=== PATIENT | female | born 1945 | race African-American/Black ===

== ENCOUNTER → 2016-10-24 | Outpatient (CLI) | payer MEDICARE, MEDICAID ==
[~2016-10-24] MED LIST: ALBU6.7H2 IH; ATOR10TA69 PO; CARV40CP PO; DEXL60CA3 PO; OLME20TA14 PO
== END | disposition home or self-care (01) ==
LOC: MAMMO 08:01
PROVIDERS: ATTEND Internal Medicine Critical Care Medicine
DX: Z12.31 Encounter for screening mammogram for malignant neoplasm of breast (principal)
CPT/HCPCS: G0202

== ENCOUNTER 2016-12-26 06:27 | Inpatient (IN) | payer MEDICARE, MEDICAID ==
[~2016-12-26] VITALS: Ht 162.6 cm; Wt 97.1 kg
[2016-12-26] MEDS ORDERED: SODIUM CHLORIDE 0.9% 1,000 ML IV ONE (10:16)
[2016-12-26] MEDS ORDERED: ONDANSETRON HCL 4MG/2ML VIAL IV STA (10:16)
[2016-12-26 10:53] LABS: BASOPHILS % 0.3 % (0.0-2.0); EOSINOPHILS % 1.5 % (0.0-5.0); HEMATOCRIT. 44.3 % (36.0-48.0); HEMOGLOBIN. 14.7 g/dL (12.0-16.0); LYMPHOCYTES % 9.8 % (20.0-50.0); MEAN CORPUSCULAR HEMOGLOBIN 27.7 pg (28.0-32.0); MEAN CORPUSCULAR VOLUME 83.8 fL (81.0-99.0); MEAN PLATELET VOLUME 9.4 fl (7.4-10.4); MONOCYTES % 2.8 % (2.0-8.0); NEUTROPHILS % 85.6 % (40.0-76.0); PLATELET 313 x1000/uL (130-400); RED BLOOD CELL COUNT 5.29 mill/uL (4.2-5.4); RED CELL DISTRIBUTION WIDTH 14.1 % (11.6-14.6)
[2016-12-26 11:05] LABS: INR 1.1; PARTIAL THROMBOPLASTIN TIME 25.2 sec (23.4-31.0); PROTHROMBIN TIME 11.5 sec (9.4-11.6)
[2016-12-26 11:08] LABS: CARBON DIOXIDE 29 mEq/L (21-32); CHLORIDE 105 mEq/L (98-107)
[2016-12-26] MEDS ORDERED: DICYCLOMINE HCL 10MG/ML 2ML AMP IM STA (13:29)
[2016-12-26] MEDS ORDERED: DICYCLOMINE HCL 10MG/ML 2ML AMP IM NR (14:10)
[2016-12-26] MEDS ORDERED: ONDANSETRON HCL 4MG/2ML VIAL IV PRN (20:30)
[2016-12-26] MEDS ORDERED: LOPERAMIDE HCL 2MG CAPSULE PO PRN (20:30)
[2016-12-26] MEDS ORDERED: ALBUTEROL 6.7GM HFA INHALER ORI PRN (20:30)
[2016-12-26] MEDS ORDERED: MORPHINE SULFATE 4 MG/ML CPJ (NOT FOR IM USE) IV PRN (21:30)
[2016-12-26] MEDS ORDERED: ALBUTEROL (0.083%) 2.5MG/3ML NEB HHN PRN (23:45)
[2016-12-27] VITALS (8 sets, daily range): BP systolic 112–146; BP diastolic 51–79
[2016-12-27] MEDS ORDERED: BISMUTH SUBSALICYLATE 262 MG/15 ML-120ML BOTTLE PO PRN (02:00)
[2016-12-27] MEDS ORDERED: DEXT 5%/0.45% NACL KCL 40MEQ/L 1,000 ML IV SCH (02:00)
[2016-12-27 07:07] LABS: CHLORIDE 107 mEq/L (98-107)
[2016-12-27 07:19] LABS: CARBON DIOXIDE 27 mEq/L (21-32); HDL CHOLESTEROL 49 mg/dL (40-59); LDL CHOLESTEROL 38 mg/dL (5-100)
[2016-12-27 07:45] LABS: BASOPHILS % 0.2 % (0.0-2.0); EOSINOPHILS % 8.1 % (0.0-5.0); HEMATOCRIT. 35.2 % (36.0-48.0); HEMOGLOBIN. 11.8 g/dL (12.0-16.0); LYMPHOCYTES % 32.6 % (20.0-50.0); MEAN CORPUSCULAR VOLUME 83.7 fL (81.0-99.0); MEAN PLATELET VOLUME 9.9 fl (7.4-10.4); MONOCYTES % 6.3 % (2.0-8.0); NEUTROPHILS % 52.8 % (40.0-76.0); PLATELET 238 x1000/uL (130-400); RED BLOOD CELL COUNT 4.21 mill/uL (4.2-5.4); RED CELL DISTRIBUTION WIDTH 13.8 % (11.6-14.6)
[2016-12-27] MEDS: PANTOPRAZOLE SODIUM 40 MG/VIAL IV SCH (08:39)
[2016-12-27] MEDS: LACTOBACILLUS GG CAPSULE PO SCH (08:40)
[2016-12-27] MEDS: CARVEDILOL 12.5MG TABLET PO SCH ×2 (08:41→21:38)
[2016-12-27] MEDS ORDERED: NON FORMULARY PATIENT HOME MED EA ORI SCH (09:00)
[2016-12-27] MEDS: POTASSIUM BICARB/CIT ACID 25 MEQ TABLET.EFF PO SCH ×2 (10:51→14:22)
[2016-12-27] MEDS: IPRATROPIUM BROMIDE (0.02%) 0.5MG/2.5ML NEB HHN SCH (19:58)
[2016-12-28] VITALS: BP 90/60
[2016-12-28] MEDS: IPRATROPIUM BROMIDE (0.02%) 0.5MG/2.5ML NEB HHN SCH ×3 (01:34→21:30)
[2016-12-28 04:00] VITALS: BP 139/68
[2016-12-28 06:52] LABS: CARBON DIOXIDE 29 mEq/L (21-32); CHLORIDE 108 mEq/L (98-107)
[2016-12-28 08:00] VITALS: BP 133/76
[2016-12-28 08:03] LABS: BASOPHILS % 0.3 % (0.0-2.0); EOSINOPHILS % 12.9 % (0.0-5.0); HEMATOCRIT. 34.4 % (36.0-48.0); HEMOGLOBIN. 11.8 g/dL (12.0-16.0); MEAN CORPUSCULAR HEMOGLOBIN 28.4 pg (28.0-32.0); MEAN CORPUSCULAR VOLUME 82.6 fL (81.0-99.0); MEAN PLATELET VOLUME 9.8 fl (7.4-10.4); MONOCYTES % 5.4 % (2.0-8.0); NEUTROPHILS % 50.4 % (40.0-76.0); PLATELET 246 x1000/uL (130-400); RED BLOOD CELL COUNT 4.16 mill/uL (4.2-5.4); RED CELL DISTRIBUTION WIDTH 13.9 % (11.6-14.6)
[2016-12-28] MEDS: PANTOPRAZOLE SODIUM 40 MG/VIAL IV SCH (09:35)
[2016-12-28] MEDS: POTASSIUM BICARB/CIT ACID 25 MEQ TABLET.EFF PO SCH ×2 (09:35→14:04)
[2016-12-28] MEDS: CARVEDILOL 12.5MG TABLET PO SCH ×2 (09:36→21:24)
[2016-12-28] MEDS: LACTOBACILLUS GG CAPSULE PO SCH (09:41)
[2016-12-28 12:00] VITALS: BP 129/65
[2016-12-28 16:00] VITALS: BP 131/73
[2016-12-28] MEDS ORDERED: POTASSIUM CHLORIDE 20MEQ TABLET SR PO SCH (19:15)
[2016-12-28 20:00] VITALS: BP 128/59
[2016-12-28] MEDS: METRONIDAZOLE 500MG TABLET PO SCH (22:49)
[2016-12-29] VITALS: BP 106/64
[2016-12-29] MEDS: IPRATROPIUM BROMIDE (0.02%) 0.5MG/2.5ML NEB HHN SCH ×2 (02:33→08:54)
[2016-12-29 04:00] VITALS: BP 136/73
[2016-12-29 06:03] LABS: CARBON DIOXIDE 31 mEq/L (21-32); CHLORIDE 106 mEq/L (98-107)
[2016-12-29] MEDS: METRONIDAZOLE 500MG TABLET PO SCH ×2 (06:53→13:47)
[2016-12-29 08:00] VITALS: BP 118/56
[2016-12-29] MEDS: CARVEDILOL 12.5MG TABLET PO SCH (08:31)
[2016-12-29] MEDS: LACTOBACILLUS GG CAPSULE PO SCH (08:34)
[2016-12-29] MEDS: POTASSIUM BICARB/CIT ACID 25 MEQ TABLET.EFF PO SCH ×2 (08:34→13:47)
[2016-12-29] MEDS ORDERED: FAMOTIDINE 20MG TABLET PO SCH (09:00)
[2016-12-29 12:00] VITALS: BP 131/67
[2016-12-29 16:00] VITALS: BP 143/74
[2016-12-29 17:00] VITALS: BP 143/74
[2016-12-29] MEDS ORDERED: ENOXAPARIN 30MG/0.3ML SYR SUBCUT SCH (21:00)
[2017-01-01 04:18] LABS: OVA & PARASITE EXAM Final report (.)
== END 2016-12-29 17:30 | disposition home or self-care (01) | DRG 372 ==
LOC: ER 10:14 → EDBEDREQ 12:59 → OBSVTOIN 20:37 → 6EST 20:37 → INTOOBSV 20:37 → ENRESERV 21:10
PROVIDERS: ADMIT Internal Medicine Critical Care Medicine; ATTEND Internal Medicine Critical Care Medicine
DX: A04.7 Enterocolitis due to Clostridium difficile (principal); I43 Cardiomyopathy in diseases classified elsewhere; I11.0 Hypertensive heart disease with heart failure; I50.9 Heart failure, unspecified; J44.9 Chronic obstructive pulmonary disease, unspecified; E11.9 Type 2 diabetes mellitus without complications; E78.5 Hyperlipidemia, unspecified; E87.6 Hypokalemia; Z87.442 Personal history of urinary calculi; Z87.891 Personal history of nicotine dependence; Z90.710 Acquired absence of both cervix and uterus; Z88.6 Allergy status to analgesic agent; Z90.49 Acquired absence of other specified parts of digestive tract; Z80.3 Family history of malignant neoplasm of breast
CPT/HCPCS: 36415; 71010; 80048; 80053; 80061; 83690; 83880; 84132; 85025; 85610; 85730; 87015; 87045; 87177; 87209; 87427; 87449; 87493; 89055; 93005; 94640; 94664; 96361; 96372; 96374; 99285; C1893; C9113; J0500; J2270; J2405; J7030; J7611

== ENCOUNTER 2017-07-26 06:07 | Inpatient (IN) | payer MEDICARE, MEDICAID ==
[~2017-07-26] VITALS: Ht 160 cm; Wt 99.5 kg
[~2017-07-26 06:07] MED LIST changes: -ALBU6.7H2 IH; +ALBU6.7H3 IH
[2017-07-26 07:35] LABS: BASOPHILS % 0.6 % (0.0-2.0); EOSINOPHILS % 5.3 % (0.0-5.0); HEMATOCRIT. 39.1 % (36.0-48.0); HEMOGLOBIN. 13.3 g/dL (12.0-16.0); LYMPHOCYTES % 25.4 % (20.0-50.0); MEAN CORPUSCULAR HEMOGLOBIN 29.1 pg (28.0-32.0); MEAN CORPUSCULAR VOLUME 85.4 fL (81.0-99.0); MEAN PLATELET VOLUME 8.7 fl (7.4-10.4); MONOCYTES % 5.7 % (2.0-8.0); PLATELET 282 x1000/uL (130-400); RED BLOOD CELL COUNT 4.57 mill/uL (4.2-5.4); RED CELL DISTRIBUTION WIDTH 13.8 % (11.6-14.6)
[2017-07-26 07:38] LABS: CHLORIDE 106 mEq/L (98-107)
[2017-07-26 08:01] LABS: PARTIAL THROMBOPLASTIN TIME 27.3 sec (23.4-31.0); PROTHROMBIN TIME 10.7 sec (9.4-11.6)
[2017-07-26] MEDS ORDERED: ALBU18HF2 IH (08:41)
[2017-07-26] MEDS ORDERED: MONT10TA24 PO (08:41)
[2017-07-26] MEDS ORDERED: UMEC1DIS IH (08:41)
[2017-07-26] MEDS ORDERED: SPIR50TA26 PO (08:41)
[2017-07-26] MEDS ORDERED: ASPI-1159 PO (08:41)
[2017-07-26] MEDS ORDERED: FENTANYL CITRATE/PF 50MCG/ML 2ML VIAL ONE (09:59)
[2017-07-26] MEDS ORDERED: DIPHENHYDRAMINE 50MG/ML VIAL ONE (10:00)
[2017-07-26] MEDS ORDERED: MIDAZOLAM HCL 2 MG/2 ML VIAL ONE (10:00)
[2017-07-26] MEDS ORDERED: PROPOFOL 200MG/20ML VIAL IV ONE (10:07)
[2017-07-26] MEDS ORDERED: LIDOCAINE HCL/PF 1% 10 MG/ML 5ML VIAL ONE ×2 (10:08→10:53)
[2017-07-26] MEDS ORDERED: GENTAMICIN SULF 40MG/ML 2ML VIAL ONE (10:21)
[2017-07-26] MEDS ORDERED: LIDOCAINE HCL/PF 1% 10 MG/ML 30ML VIAL ONE (10:21)
[2017-07-26] MEDS ORDERED: GENTAMICIN/NS IRRIGATION 500 ML IR ONE (10:22)
[2017-07-26] MEDS ORDERED: IOHEXOL-300 100 ML BOTTLE ONE (10:22)
[2017-07-26] MEDS ORDERED: CEFAZOLIN SODIUM 1000MG/VIAL ONE (10:24)
[2017-07-26] MEDS ORDERED: MORPHINE SULFATE 2 MG/ML CPJ (NOT FOR IM USE) IV PRN (13:45)
[2017-07-26] MEDS: HYDROCODONE/ACETAMINOPHEN 5/325MG TABLET PO PRN ×2 (14:28→20:35)
[2017-07-26 16:02] VITALS: BP 130/75
[2017-07-26 16:35] VITALS: BP 130/75
[2017-07-26] MEDS ORDERED: ALBUTEROL 6.7GM HFA INHALER INH SCH (17:00)
[2017-07-26 18:00] VITALS: BP 124/84
[2017-07-26 20:00] VITALS: BP 112/49
[2017-07-26] MEDS: CARVEDILOL 12.5MG TABLET PO SCH (20:34)
[2017-07-26] MEDS ORDERED: ATORVASTATIN CALCIUM 10MG TABLET PO SCH (21:00)
[2017-07-26 22:00] VITALS: BP 120/69
[2017-07-27] VITALS (9 sets, daily range): BP systolic 90–124; BP diastolic 48–69
[2017-07-27] MEDS: HYDROCODONE/ACETAMINOPHEN 5/325MG TABLET PO PRN (00:45)
[2017-07-27 06:51] LABS: BASOPHILS % 0.7 % (0.0-2.0); EOSINOPHILS % 4.1 % (0.0-5.0); HEMATOCRIT. 37.9 % (36.0-48.0); HEMOGLOBIN. 12.8 g/dL (12.0-16.0); LYMPHOCYTES % 26.6 % (20.0-50.0); MEAN CORPUSCULAR HEMOGLOBIN 29.1 pg (28.0-32.0); MEAN CORPUSCULAR VOLUME 85.9 fL (81.0-99.0); MEAN PLATELET VOLUME 8.9 fl (7.4-10.4); MONOCYTES % 5.4 % (2.0-8.0); NEUTROPHILS % 63.2 % (40.0-76.0); PLATELET 243 x1000/uL (130-400); RED BLOOD CELL COUNT 4.42 mill/uL (4.2-5.4); RED CELL DISTRIBUTION WIDTH 13.7 % (11.6-14.6)
[2017-07-27 07:59] LABS: CHLORIDE 104 mEq/L (98-107)
[2017-07-27] MEDS: ALBUTEROL (0.083%) 2.5MG/3ML NEB HHN SCH ×2 (08:50→14:14)
[2017-07-27] MEDS: CARVEDILOL 12.5MG TABLET PO SCH (08:57)
[2017-07-27] MEDS ORDERED: SPIRONOLACTONE 50MG TABLET PO SCH (09:00)
[2017-07-27] MEDS ORDERED: ASPIRIN 81MG EC TABLET PO SCH (09:00)
[2017-07-27] MEDS ORDERED: MONTELUKAST SODIUM 10MG TABLET PO SCH (17:00)
== END 2017-07-27 14:54 | disposition home or self-care (01) | DRG 227 ==
LOC: CCL 06:07 → 3WST 15:52
PROVIDERS: ADMIT Internal Medicine Clinical Cardiac Electrophysiology; ATTEND Internal Medicine Clinical Cardiac Electrophysiology
PROC: 02HK3KZ Insertion of Defibrillator Lead into Right Ventricle, Percutaneous Approach (ICD-10-PCS; 2017-07-26)
PROC: 4A133B3 Monitoring of Arterial Pressure, Pulmonary, Percutaneous Approach (ICD-10-PCS; 2017-07-26)
PROC: 4A1239Z Monitoring of Cardiac Output, Percutaneous Approach (ICD-10-PCS; 2017-07-26)
PROC: 02HQ32Z Insertion of Monitoring Device into Right Pulmonary Artery, Percutaneous Approach (ICD-10-PCS; 2017-07-26)
PROC: 0JH608Z Insertion of Defibrillator Generator into Chest Subcutaneous Tissue and Fascia, Open Approach (ICD-10-PCS; principal; 2017-07-26 09:30)
DX: I50.22 Chronic systolic (congestive) heart failure (principal); I27.20 Pulmonary hypertension, unspecified; I42.0 Dilated cardiomyopathy; J44.9 Chronic obstructive pulmonary disease, unspecified; I49.3 Ventricular premature depolarization; Z98.84 Bariatric surgery status
CPT/HCPCS: 33249; 36415; 71045; 75820; 80048; 85025; 85610; 85730; 93005; 93451; 93641; 94640; A4565; C1722; C1769; C1893; C1899; J0690; J1200; J1580; J1644; J2250; J2704; J3010; J3490; J7050; J7611; Q9967

== ENCOUNTER → 2017-10-29 | Outpatient (CLI) | payer MEDICARE, MEDICAID ==
[~2017-10-29] MED LIST changes: +ALBU18HF2 IH; -ALBU6.7H3 IH; +ALBU6.7H9 IH; +ASPI-1159 PO; +MONT10TA24 PO; +SPIR50TA5 PO; +UMEC1DIS IH
== END | disposition home or self-care (01) ==
LOC: MAMMO 13:38
PROVIDERS: ATTEND Internal Medicine Critical Care Medicine
DX: Z12.31 Encounter for screening mammogram for malignant neoplasm of breast (principal); R92.1 Mammographic calcification found on diagnostic imaging of breast
CPT/HCPCS: 77067

== ENCOUNTER → 2018-11-21 | Outpatient (CLI) | payer MEDICARE, MEDICAID ==
[~2018-11-21] MED LIST changes: -ASPI-1159 PO; +ASPI-1393 PO; +OLME20TA13 PO; -OLME20TA14 PO
== END | disposition home or self-care (01) ==
LOC: MAMMO 14:09
PROVIDERS: ATTEND Internal Medicine Critical Care Medicine
DX: Z12.31 Encounter for screening mammogram for malignant neoplasm of breast (principal)
CPT/HCPCS: 77067

== ENCOUNTER 2019-10-24 21:08 | Emergency (ER) | payer MEDICARE, MEDICAID ==
[~2019-10-24] VITALS: Ht 162.6 cm; Wt 103.0 kg
[~2019-10-24 21:08] MED LIST changes: -ASPI-1393 PO; +ASPI-1497 PO; -MONT10TA24 PO; +MONT10TA26 PO
[2019-10-24] MEDS ORDERED: ONDANSETRON HCL 4MG/2ML INJ IV NR (21:52)
[2019-10-24] MEDS ORDERED: MORPHINE SULFATE 2 MG/ML CPJ (NOT FOR IM USE) IV ONE (22:00)
[2019-10-24] MEDS: SODIUM CHLORIDE 0.9% 1,000 ML IV NR ×2 (22:18→22:53)
[2019-10-24 22:19] LABS: CLARITY URINE CLOUDY (CLEAR); COLOR URINE ORANGE (YELLOW); KETONES URINE NEGATIVE (NEGATIVE); LEUKOCYTE ESTERASE URINE TRACE (NEGATIVE); NITRITE URINE NEGATIVE (NEGATIVE); OCCULT BLOOD URINE 3+ (NEGATIVE); PROTEIN URINE 2+ (NEGATIVE); SPECIFIC GRAVITY URINE 1.015 (1.005-1.030); UROBILINOGEN URINE 0.2 E.U./dL (0.2-1.0)
[2019-10-24] MEDS ORDERED: KETOROLAC 15MG/ML VIAL IV NR (22:30)
[2019-10-24 23:33] LABS: BASOPHILS % 0.6 % (0.0-2.0); EOSINOPHILS % 0.7 % (0.0-5.0); HEMOGLOBIN. 12.3 g/dL (12.0-16.0); LYMPHOCYTES % 10.4 % (20.0-50.0); MEAN CORPUSCULAR HEMOGLOBIN 28.1 pg (28.0-32.0); MEAN CORPUSCULAR VOLUME 84.7 fL (81.0-99.0); MEAN PLATELET VOLUME 8.9 fl (7.4-10.4); MONOCYTES % 3.2 % (2.0-8.0); NEUTROPHILS % 85.1 % (40.0-76.0); PLATELET 300 x1000/uL (130-400); RED BLOOD CELL COUNT 4.37 mill/uL (4.2-5.4)
[2019-10-24 23:34] LABS: CHLORIDE 108 mEq/L (98-107)
[2019-10-24 23:40] LABS: PROTHROMBIN TIME 10.8 sec (9.6-11.0)
[2019-10-25] MEDS: SODIUM CHLORIDE 0.9% 1,000 ML IV NR (00:12)
[2019-10-25] MEDS ORDERED: AMLODIPINE 10MG TABLET PO ONE (00:15)
[2019-10-25] MEDS ORDERED: IBUPROFEN 600MG TABLET PO ONE (00:15)
[2019-10-25] MEDS ORDERED: CLONIDINE 0.1MG TABLET PO ONE (00:15)
[2019-10-25] MEDS ORDERED: CEFTRIAXONE 1 G PREMIX 50 ML IV NR (00:30)
[2019-10-25 01:30] VITALS: BP 196/92
== END 2019-10-25 01:52 | disposition home or self-care (01) ==
LOC: ER 21:08
DX: N23 Unspecified renal colic (principal); I50.9 Heart failure, unspecified; E11.9 Type 2 diabetes mellitus without complications; J44.9 Chronic obstructive pulmonary disease, unspecified; Z91.018 Allergy to other foods; T78.40XA Allergy, unspecified, initial encounter; Z88.6 Allergy status to analgesic agent; Z79.899 Other long term (current) drug therapy; Z98.890 Other specified postprocedural states; Z90.710 Acquired absence of both cervix and uterus
CPT/HCPCS: 36415; 74176; 80053; 81003; 83690; 83880; 84484; 85025; 85610; 93005; 96365; 96375; 99285; J0696; J1885; J2270; J2405

== ENCOUNTER → 2019-11-18 | Outpatient (CLI) | payer MEDICARE, MEDICAID | END | disposition home or self-care (01) | LOC: MRI 09:22 | PROVIDERS: ATTEND Neurological Surgery | DX: M47.816 Spondylosis without myelopathy or radiculopathy, lumbar region (principal); M48.061 Spinal stenosis, lumbar region without neurogenic claudication; M47.812 Spondylosis without myelopathy or radiculopathy, cervical region; M48.02 Spinal stenosis, cervical region | CPT/HCPCS: 72141; 72148 ==

== ENCOUNTER → 2019-11-30 | Outpatient (CLI) | payer MEDICARE, MEDICAID | END | disposition home or self-care (01) | LOC: LAB 10:58 | PROVIDERS: ATTEND Internal Medicine Pulmonary Disease | DX: Z11.59 Encounter for screening for other viral diseases (principal) | CPT/HCPCS: C9803; U0003 ==

== ENCOUNTER → 2019-12-02 | Outpatient (CLI) | payer MEDICARE, MEDICAID | END | disposition home or self-care (01) | LOC: MAMMO 12:49 | PROVIDERS: ATTEND Internal Medicine Pulmonary Disease | DX: Z12.31 Encounter for screening mammogram for malignant neoplasm of breast (principal) | CPT/HCPCS: 77067 ==

== ENCOUNTER → 2020-01-22 | Outpatient (CLI) | payer MEDICARE, MEDICAID | END | disposition home or self-care (01) | LOC: RAD 10:38 | PROVIDERS: ATTEND Neurological Surgery | DX: M47.812 Spondylosis without myelopathy or radiculopathy, cervical region (principal); M25.78 Osteophyte, vertebrae | CPT/HCPCS: 72052 ==

== ENCOUNTER → 2020-02-08 | Outpatient (CLI) | payer MEDICARE, MEDICAID | END | disposition home or self-care (01) | LOC: RAD 14:02 | PROVIDERS: ATTEND Specialist | DX: Z01.818 Encounter for other preprocedural examination (principal); R05 Cough | CPT/HCPCS: 71046 ==

== ENCOUNTER → 2020-02-26 | Outpatient (CLI) | payer MEDICARE, MEDICAID ==
[~2020-02-26] MED LIST changes: +DULO30CA52 PO; +FLUT1BLS3 IH; +HYDR-3281 PO; +ISOS1TAB PO; +IVAB5TAB PO; +LORA-671 PO; +ONDA4TAB11 PO; +TC025C15 TOP
== END | disposition home or self-care (01) ==
LOC: LAB 11:09
PROVIDERS: ATTEND Neurological Surgery
DX: Z01.812 Encounter for preprocedural laboratory examination (principal); Z20.828 Contact with and (suspected) exposure to other viral communicable diseases
CPT/HCPCS: C9803; U0003

== ENCOUNTER → 2020-04-22 | Outpatient (CLI) | payer MEDICARE, MEDICAID ==
[~2020-04-22] MED LIST changes: -LORA-671 PO; -MONT10TA26 PO; -OLME20TA13 PO; -SPIR50TA5 PO; -UMEC1DIS IH
== END | disposition home or self-care (01) ==
LOC: RAD 12:19
PROVIDERS: ATTEND Neurological Surgery
DX: M47.812 Spondylosis without myelopathy or radiculopathy, cervical region (principal); M48.061 Spinal stenosis, lumbar region without neurogenic claudication; M43.22 Fusion of spine, cervical region
CPT/HCPCS: 72040

== ENCOUNTER → 2020-06-23 | Outpatient (CLI) | payer MEDICARE, MEDICAID ==
[~2020-06-23] MED LIST changes: -HYDR-3281 PO; +HYDR-4346 PO
== END | disposition home or self-care (01) ==
LOC: MRI 10:21
PROVIDERS: ATTEND Neurological Surgery
DX: K44.9 Diaphragmatic hernia without obstruction or gangrene (principal); M54.9 Dorsalgia, unspecified
CPT/HCPCS: 72146

== ENCOUNTER → 2020-11-18 | Outpatient (CLI) | payer MEDICARE, MEDICAID ==
[~2020-11-18] MED LIST changes: -CARV40CP PO; +CARV40CP11 PO
== END | disposition home or self-care (01) ==
LOC: MRI 12:25
PROVIDERS: ATTEND Neurological Surgery
DX: M47.816 Spondylosis without myelopathy or radiculopathy, lumbar region (principal); M48.061 Spinal stenosis, lumbar region without neurogenic claudication; M48.07 Spinal stenosis, lumbosacral region; M51.36 Other intervertebral disc degeneration, lumbar region; M51.26 Other intervertebral disc displacement, lumbar region
CPT/HCPCS: 72148

== ENCOUNTER → 2020-12-22 | Outpatient (CLI) | payer MEDICARE, MEDICAID | END | disposition home or self-care (01) | LOC: MAMMO 09:28 | PROVIDERS: ATTEND Internal Medicine Pulmonary Disease | DX: Z12.31 Encounter for screening mammogram for malignant neoplasm of breast (principal); N64.89 Other specified disorders of breast | CPT/HCPCS: 77067 ==

== ENCOUNTER → 2021-08-04 | Outpatient (CLI) | payer MEDICARE, MEDICAID ==
[~2021-08-04] MED LIST changes: +ALBUTEROL (0.083%) 2.5MG/3ML NEB ONE; +CARV40CP PO; -CARV40CP11 PO
== END | disposition home or self-care (01) ==
LOC: PF 09:41
PROVIDERS: ATTEND Internal Medicine Pulmonary Disease
DX: J44.9 Chronic obstructive pulmonary disease, unspecified (principal); J98.4 Other disorders of lung; J45.909 Unspecified asthma, uncomplicated; Z20.822 Contact with and (suspected) exposure to COVID-19
CPT/HCPCS: 87426; 94060; 94727; 94729

== ENCOUNTER 2022-06-10 20:22 | Emergency (ER) | payer MEDICARE, MEDICAID ==
[~2022-06-10] VITALS: Ht 162.6 cm; Wt 98.0 kg
[~2022-06-10 20:22] MED LIST changes: +ALBU6.7H3 IH; -ALBU6.7H9 IH; -ALBUTEROL (0.083%) 2.5MG/3ML NEB ONE; -ISOS1TAB PO; +ISOS1TAB2 PO
[2022-06-10] MEDS ORDERED: SODIUM CHLORIDE 0.9% 1,000 ML IV ONE (23:45)
[2022-06-10] MEDS ORDERED: KETOROLAC 30MG/ML VIAL IV STA (23:45)
[2022-06-11] MEDS ORDERED: ONDANSETRON HCL 4MG/2ML INJ IV ONE
[2022-06-11 00:22] LABS: BASOPHILS % 0.5 % (0.0-2.0); EOSINOPHILS % 1.3 % (0.0-5.0); HEMATOCRIT. 36.1 % (36.0-48.0); HEMOGLOBIN. 11.9 g/dL (12.0-16.0); LYMPHOCYTES % 14.4 % (20.0-50.0); MEAN CORPUSCULAR HEMOGLOBIN 27.4 pg (28.0-32.0); MEAN PLATELET VOLUME 8.4 fl (7.4-10.4); NEUTROPHILS % 78.8 % (40.0-76.0); PLATELET 366 x1000/uL (130-400); RED BLOOD CELL COUNT 4.35 mill/uL (4.2-5.4); RED CELL DISTRIBUTION WIDTH 14.6 % (11.6-14.6)
[2022-06-11 00:36] LABS: CHLORIDE 100 mEq/L (98-107)
[2022-06-11 02:17] LABS: CLARITY URINE CLOUDY (CLEAR); COLOR URINE ORANGE (YELLOW); KETONES URINE NEGATIVE (NEGATIVE); LEUKOCYTE ESTERASE URINE TRACE (NEGATIVE); NITRITE URINE NEGATIVE (NEGATIVE); OCCULT BLOOD URINE 3+ (NEGATIVE); PH URINE 5.5 (4.5-8.0); PROTEIN URINE TRACE (NEGATIVE); SPECIFIC GRAVITY URINE 1.004 (1.005-1.030); UROBILINOGEN URINE 0.2 E.U./dL (0.2-1.0)
[2022-06-11] MEDS ORDERED: TRAM50TA3 MT (03:39)
[2022-06-11 04:01] VITALS: BP 140/57
[2022-06-12] MEDS ORDERED: AMLO5TAB88 MT (16:15)
== END 2022-06-11 04:02 | disposition home or self-care (01) ==
LOC: ER 20:22
DX: N13.2 Hydronephrosis with renal and ureteral calculous obstruction (principal); E11.9 Type 2 diabetes mellitus without complications; J44.9 Chronic obstructive pulmonary disease, unspecified; I50.9 Heart failure, unspecified; Z98.1 Arthrodesis status; Z90.710 Acquired absence of both cervix and uterus; Z79.82 Long term (current) use of aspirin; Z88.8 Allergy status to other drugs, medicaments and biological substances; Z88.5 Allergy status to narcotic agent
CPT/HCPCS: 36415; 74176; 80053; 81003; 83605; 83690; 85025; 96374; 96375; 99285; J1885; J2405; J7030

== ENCOUNTER 2022-06-11 12:26 | Inpatient (IN) | payer MEDICARE, MEDICAID ==
[~2022-06-11] VITALS: Ht 160 cm; Wt 74.8 kg
[~2022-06-11 12:26] MED LIST changes: +TRAM50TA3 MT
[2022-06-11 17:59] LABS: BASOPHILS % 0.3 % (0.0-2.0); EOSINOPHILS % 0.3 % (0.0-5.0); HEMATOCRIT. 40.8 % (36.0-48.0); HEMOGLOBIN. 13.2 g/dL (12.0-16.0); LYMPHOCYTES % 8.7 % (20.0-50.0); MEAN CORPUSCULAR HEMOGLOBIN 27.6 pg (28.0-32.0); MEAN CORPUSCULAR VOLUME 85.4 fL (81.0-99.0); MEAN PLATELET VOLUME 8.5 fl (7.4-10.4); MONOCYTES % 2.9 % (2.0-8.0); NEUTROPHILS % 87.8 % (40.0-76.0); PLATELET 390 x1000/uL (130-400); RED BLOOD CELL COUNT 4.78 mill/uL (4.2-5.4); RED CELL DISTRIBUTION WIDTH 14.5 % (11.6-14.6)
[2022-06-11 18:05] LABS: CHLORIDE 101 mEq/L (98-107)
[2022-06-11] MEDS ORDERED: KETOROLAC 30MG/ML VIAL IV ONE (20:15)
[2022-06-11] MEDS ORDERED: SODIUM CHLORIDE 0.9% 1,000 ML IV ONE (20:15)
[2022-06-11] MEDS ORDERED: ONDANSETRON HCL 4MG/2ML INJ IV ONE (21:00)
[2022-06-11 21:21] LABS: CLARITY URINE CLEAR (CLEAR); COLOR URINE YELLOW (YELLOW); KETONES URINE 2+ (NEGATIVE); LEUKOCYTE ESTERASE URINE TRACE (NEGATIVE); NITRITE URINE NEGATIVE (NEGATIVE); OCCULT BLOOD URINE 1+ (NEGATIVE); PROTEIN URINE 1+ (NEGATIVE); SPECIFIC GRAVITY URINE 1.016 (1.005-1.030); UROBILINOGEN URINE 0.2 E.U./dL (0.2-1.0)
[2022-06-12] MEDS ORDERED: ACETAMINOPHEN 325MG TABLET PO PRN (09:45)
[2022-06-12] MEDS ORDERED: CEFTRIAXONE 1 G PREMIX 50 ML IV NR (10:30)
[2022-06-12] MEDS: KETOROLAC 15MG/ML VIAL IV PRN ×3 (10:51→21:58)
[2022-06-12 13:30] VITALS: BP 112/71
[2022-06-12 16:00] VITALS: BP 145/66
[2022-06-12] MEDS ORDERED: AMLO5TAB88 MT (16:15)
[2022-06-12] MEDS: AMLODIPINE 5MG TABLET PO SCH (18:42)
[2022-06-12 20:00] VITALS: BP 160/80
[2022-06-12] MEDS: ATORVASTATIN CALCIUM 10MG TABLET PO SCH (21:59)
[2022-06-13] VITALS: BP 156/61
[2022-06-13 04:00] VITALS: BP 149/75
[2022-06-13] MEDS: OMEPRAZOLE 20MG CAPSULE EXTENDED RELEASE PO SCH (06:29)
[2022-06-13 08:00] VITALS: BP 114/75
[2022-06-13] MEDS: DULOXETINE HCL 30MG DR CAPSULE PO SCH (08:11)
[2022-06-13] MEDS: AMLODIPINE 5MG TABLET PO SCH (08:12)
[2022-06-13] MEDS: KETOROLAC 15MG/ML VIAL IV PRN ×2 (08:13→14:57)
[2022-06-13] MEDS: ONDANSETRON HCL 4MG/2ML INJ IV PRN ×2 (11:42→21:28)
[2022-06-13 12:00] VITALS: BP 143/59
[2022-06-13] MEDS ORDERED: CEFTRIAXONE 1,000 MG in DEXTROSE 5% WATER 50 ML IV SCH (12:00)
[2022-06-13 16:00] VITALS: BP 136/64
[2022-06-13] MEDS ORDERED: PROPOFOL 200MG/20ML VIAL IV ONE (16:29)
[2022-06-13] MEDS ORDERED: MIDAZOLAM HCL 2 MG/2 ML VIAL ONE (16:42)
[2022-06-13] MEDS ORDERED: SUCCINYLCHOLINE CHLORIDE 200MG/10ML IV ONE (16:44)
[2022-06-13] MEDS ORDERED: FENTANYL CITRATE/PF 50MCG/ML 2ML VIAL ONE (17:11)
[2022-06-13] MEDS ORDERED: FENTANYL CITRATE/PF 50MCG/ML 2ML VIAL IV PRN (17:30)
[2022-06-13] MEDS ORDERED: ONDANSETRON HCL 4MG/2ML INJ ONE (17:49)
[2022-06-13] MEDS ORDERED: DEXAMETHASONE 4MG/ML 1ML VIAL ONE (17:49)
[2022-06-13] MEDS ORDERED: CEFAZOLIN SODIUM 1000MG/VIAL ONE (17:49)
[2022-06-13] MEDS ORDERED: PHENYLEPHRINE HCL 10 MG/ML 1ML (IV VIAL) IV ONE (18:18)
[2022-06-13 20:00] VITALS: BP 146/78
[2022-06-13] MEDS: ATORVASTATIN CALCIUM 10MG TABLET PO SCH (21:06)
[2022-06-13] MEDS: KETOROLAC 15MG/ML VIAL IV SCH (21:29)
[2022-06-14] VITALS: BP 132/55
[2022-06-14] MEDS: KETOROLAC 15MG/ML VIAL IV SCH ×2 (01:36→06:00)
[2022-06-14 04:00] VITALS: BP 128/64
[2022-06-14] MEDS: OMEPRAZOLE 20MG CAPSULE EXTENDED RELEASE PO SCH (05:51)
[2022-06-14 08:00] VITALS: BP 140/67
[2022-06-14 09:16] VITALS: BP 140/67
[2022-06-14] MEDS: DULOXETINE HCL 30MG DR CAPSULE PO SCH (09:32)
[2022-06-14] MEDS: AMLODIPINE 5MG TABLET PO SCH (09:33)
[2022-06-14] MEDS: ONDANSETRON HCL 4MG/2ML INJ IV PRN (09:37)
== END 2022-06-14 10:20 | disposition home or self-care (01) | DRG 661 ==
LOC: ER 12:26 → MICUSO 23:02 → 6EST 06-12 13:35
PROVIDERS: ADMIT Internal Medicine; ATTEND Internal Medicine
PROC: 0T768DZ Dilation of Right Ureter with Intraluminal Device, Via Natural or Artificial Opening Endoscopic (ICD-10-PCS; principal; 2022-06-13)
DX: N13.2 Hydronephrosis with renal and ureteral calculous obstruction (principal); E11.9 Type 2 diabetes mellitus without complications; J44.9 Chronic obstructive pulmonary disease, unspecified; Z20.822 Contact with and (suspected) exposure to COVID-19; I11.0 Hypertensive heart disease with heart failure; I50.9 Heart failure, unspecified; Z87.442 Personal history of urinary calculi; Z90.710 Acquired absence of both cervix and uterus; Z88.8 Allergy status to other drugs, medicaments and biological substances; Z79.899 Other long term (current) drug therapy
CPT/HCPCS: 36415; 51610; 74176; 76000; 76770; 80053; 81003; 82962; 83036; 83605; 85025; 87426; 96374; 96375; 99285; C1893; C2617; J0330; J0690; J0696; J1100; J1885; J2250; J2370; J2405; J2704; J3010; J7030; J7060

== ENCOUNTER → 2023-05-16 | Outpatient (CLI) | payer MEDICARE, MEDICAID ==
[~2023-05-16] MED LIST changes: +AMLO5TAB88 MT
== END | disposition home or self-care (01) ==
LOC: MAMMO 11:06
PROVIDERS: ATTEND Internal Medicine Geriatric Medicine
DX: Z12.31 Encounter for screening mammogram for malignant neoplasm of breast (principal)
CPT/HCPCS: 77063; 77067